=== PATIENT | male | born 2005 | race Caucasian/White ===

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

== ENCOUNTER 2025-01-06 11:47 | Emergency (ER) | payer OTHER ==
[~2025-01-06] VITALS: Ht 180.3 cm; Wt 57.0 kg
[2025-01-06 11:51] VITALS: BP 141/76; TEMP 98.4; O2SAT 100
[2025-01-06] MEDS ORDERED: NEOSPORIN TOP OINT 15GM TOP ONE (15:00)
== END 2025-01-06 15:49 | disposition left against medical advice (07) ==
LOC: M ED 11:47
DX: S19.9XXA Unspecified injury of neck, initial encounter (principal); Y92.9 Unspecified place or not applicable; Y93.9 Activity, unspecified; Y99.9 Unspecified external cause status; V49.40XA Driver injured in collision with unspecified motor vehicles in traffic accident, initial encounter; F90.9 Attention-deficit hyperactivity disorder, unspecified type; Z53.9 Procedure and treatment not carried out, unspecified reason

== ENCOUNTER 2025-01-09 06:24 | Emergency (ER) | payer OTHER ==
[~2025-01-09] VITALS: Ht 180.3 cm; Wt 59.1 kg
[2025-01-09] MEDS: METOCLOPRAMIDE INJ 10MG/2ML VIAL IV ONE (08:11)
[2025-01-09] MEDS: ACETAMINOPHEN 325 MG TAB PO ONE (08:12)
[2025-01-09] MEDS: KETOROLAC 30 MG/ML 1ML VIAL IV ONE (08:12)
[2025-01-09] MEDS ORDERED: IBUP80TA PO (09:52)
[2025-01-09] MEDS ORDERED: ONDA-282 PO (09:52)
[2025-01-09 10:07] VITALS: BP 124/61; TEMP 97.7; O2SAT 100
== END 2025-01-09 10:09 | disposition home or self-care (01) ==
LOC: M ED 06:24
DX: F07.81 Postconcussional syndrome (principal); J45.909 Unspecified asthma, uncomplicated; F90.9 Attention-deficit hyperactivity disorder, unspecified type; F17.290 Nicotine dependence, other tobacco product, uncomplicated; Z79.1 Long term (current) use of non-steroidal anti-inflammatories (NSAID); Z79.899 Other long term (current) drug therapy
CPT/HCPCS: 70450; 72110; 96374; 96375; 99284; J1885; J2765